=== PATIENT | female | born 1960 | race American Indian/Alaskan Native ===

== ENCOUNTER 2018-05-22 19:57 | Emergency (ER) | payer OTHER ==
[2018-05-22 20:05] VITALS: BP 154/72
[2018-05-22] MEDS ORDERED: FLEXERIL PO ONE (22:52)
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
== END 2018-05-23 00:39 | disposition home or self-care (01) ==
LOC: ED 19:57
DX: S46.911A Strain of unspecified muscle, fascia and tendon at shoulder and upper arm level, right arm, initial encounter (principal); S16.1XXA Strain of muscle, fascia and tendon at neck level, initial encounter; I10 Essential (primary) hypertension; F17.200 Nicotine dependence, unspecified, uncomplicated; Z88.6 Allergy status to analgesic agent; V87.7XXA Person injured in collision between other specified motor vehicles (traffic), initial encounter; Y93.89 Activity, other specified; Y92.488 Other paved roadways as the place of occurrence of the external cause; Y99.8 Other external cause status
CPT/HCPCS: 99283

== ENCOUNTER 2019-12-30 21:07 | Emergency (ER) | payer SELFPAY ==
[2019-12-30 22:34] VITALS: BP 147/72
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
== END 2019-12-31 00:26 | disposition home or self-care (01) ==
LOC: ED 21:07
DX: H10.9 Unspecified conjunctivitis (principal); F17.200 Nicotine dependence, unspecified, uncomplicated; I10 Essential (primary) hypertension; Z88.6 Allergy status to analgesic agent; Z79.899 Other long term (current) drug therapy; Z98.890 Other specified postprocedural states
CPT/HCPCS: 99282

== ENCOUNTER 2020-06-24 22:05 | Emergency (ER) | payer SELFPAY ==
[2020-06-24] MEDS ORDERED: ASPIRIN 81 MG TAB CHEW PO ONE (23:31)
--- NOTE | 2020-06-24 23:56 | XRay Report ---
CHEST 1 VIEW INDICATION: Chest pain. COMPARISON: None. FINDINGS: Support devices: None. Heart: Normal. Lungs/Pleura: No acute pulmonary or pleural findings. IMPRESSION: 1. No acute findings. Signer Name: Jose Luis Sargent MD Signed: 06/24/2020 11:51 PM Workstation Name: [id number]
--- NOTE | 2020-06-25 00:37 | Cat Scan Report ---
CT ABDOMEN AND PELVIS WITHOUT IV CONTRAST INDICATION: Left flank pain, hematuria. COMPARISON: None available. TECHNIQUE: All CT scans at this facility use dose modulation, automated exposure control, iterative reconstructi on or weight based dosing, when appropriate, to reduce radiation dose to as low as reasonably achieva ble. FINDINGS: Lung Bases: No significant abnormality. Skeletal System: No acute abnormality. ABDOMEN: Liver: Steatosis. Gallbladder: No significant abnormality. Bile Ducts: No significant abnormality. Pancreas: No significant abnormality. Spleen: No significant abnormality. Adrenals: No significant abnormality. Right Kidney: No significant abnormality. Left Kidney: No significant abnormality. Upper GI tract: No significant abnormality. Lymph Nodes: No significant adenopathy. Aorta: No significant abnormality. Additional Findings: No significant abnormality. PELVIS: Colon: No acute abnormality. Urinary Bladder and Distal Ureters: No significant abnormality. Appendix: No significant abnormality. Lymph Nodes: No significant adenopathy. Additional Findings: There is a 2 cm left ovarian cyst. IMPRESSION: 1. Within the limitations of non contrast technique, no acute process in the abdomen or pelvis. 2. Incidental findings, as above. Signer Name: Jose Luis Sargent MD Signed: 06/25/2020 12:33 AM Workstation Name: [id number]
[2020-06-25 00:40] LABS: Basophils % (Auto) 0.6 % (0.0-1.8); Eosinophils % (Auto) 0.1 % (0.0-4.3); Hematocrit 32.6 % (30.3-42.9); Hemoglobin 11.2 gm/dl (10.1-14.3); Lymphocytes # (Auto) 1.1 K/mm3 (1.2-5.4); Lymphocytes % (Auto) 26.4 % (13.4-35.0); Mean Corpuscular HGB Conc 34 % (30-34); Mean Corpuscular Volume 99 fl (79-97); Monocytes # (Auto) 0.6 K/mm3 (0.0-0.8); Monocytes % (Auto) 15.8 % (0.0-7.3); Platelet Count 209 K/mm3 (140-440); Red Cell Distribution Width 16.2 % (13.2-15.2)
[2020-06-25 00:52] LABS: Alanine Aminotransferase 44 units/L (7-56); Albumin 4.3 g/dL (3.9-5); Blood Urea Nitrogen 7 mg/dL (7-17); Calcium 8.5 mg/dL (8.4-10.2); Hemolysis Index 2
[2020-06-25 00:54] LABS: BUN/Creatinine Ratio 10
[2020-06-25 01:22] LABS: Bacteria,Urine 1+ /HPF (Negative); Bilirubin,Urine NEG (Negative); Blood,Urine SM (Negative); Color,Urine Yellow (Yellow); Mucus,Urine FEW /HPF
--- NOTE | 2020-06-25 04:07 | Emergency Department Report ---
ED Chest Pain HPI - General Chief Complaint: Chest Pain Stated Complaint: CHEST PAIN;RT SIDE PAIN Time Seen by Provider: 06/25/20 04:02 Source: patient Mode of arrival: Ambulatory Limitations: No Limitations - History of Present Illness Initial Comments: 60-year-old female, no known past medical history, presents to ED with chest pain and urinary symptoms. Patient reports onset of chest pain 2 days ago. States pain is dull, intermittent, located in the center of her chest, somewhat radiating to the left breast. Patient states pain only lasts for a couple seconds at a time. She denies any chest pain currently. Denies any aggravating or alleviating factors. She denies any fever, cough, shortness of breath, diaphoresis, leg pain or swelling. Patient reports tobacco use. Patient is also reporting urinary symptoms for approximately 1 week, including hematuria, urinary frequency and urgency. She reports some associated left lower back pain that radiates across the lower back. MD Complaint: chest pain -: days(s) (2) Onset: during rest Pain Location: substernal Pain Radiation: other (Left chest) Severity: mild Severity scale (0 -10): 7 Quality: dull Consistency: intermittent Improves With: nothing Worsens With: nothing re: denies: nausea, vomting, diaphoresis, dyspnea Other Symptoms: denies: cough, fever, leg swelling, palpitations - Related Data Previous Rx's Medication Instructions Recorded Last Taken Type Cyclobenzaprine HCl [Flexeril 5 MG 5 mg PO QHS PRN #10 tablet 05/23/18 Unknown Rx TAB] Ibuprofen 800 mg PO Q8HR PRN #20 tablet 05/23/18 Unknown Rx Ofloxacin 0.3% [Ocuflox 0.3% opth] 2 drops OP Q4HR 7 Days #1 bottle 12/30/19 Unknown Rx Nitrofurantoin Isabella/M-Cryst 100 mg PO Q12HR 7 Days #14 capsule 06/25/20 Unknown Rx [Macrobid CAP] hydroCHLOROthiazide [HCTZ] 25 mg PO QDAY #30 tablet 06/25/20 Unknown Rx Allergies Allergy/AdvReac Type Severity Reaction Status Date / Time aspirin Allergy Swelling Verified 03/20/13 19:45 Heart Score - HEART Score History: Slightly suspicious EKG: Normal Age: 45-65 Risk factors: 1-2 risk factors Troponin: < normal limit HEART Score: 2 - EKG Read Time Time EKG Completed: 00:19 EKG Read Time: 00:24 ED Review of Systems ROS: Stated complaint: CHEST PAIN;RT SIDE PAIN Other details as noted in HPI Comment: All other systems reviewed and negative Constitutional: denies: chills, fever Respiratory: denies: cough, shortness of breath Cardiovascular: chest pain Gastrointestinal: denies: abdominal pain, nausea, vomiting Genitourinary: urgency, frequency, hematuria Musculoskeletal: back pain ED Past Medical Hx - Past Medical History Previous Medical History?: Yes Hx Hypertension: Yes (noncompliant with medication times years) - Surgical History Past Surgical History?: Yes Additional Surgical History: lap - Social History Smoking Status: Current Every Day Smoker Substance Use Type: None - Medications Home Medications: Home Medications Medication Instructions Recorded Confirmed Last Taken Type Cyclobenzaprine HCl [Flexeril 5 MG 5 mg PO QHS PRN #10 tablet 05/23/18 Unknown Rx TAB] Ibuprofen 800 mg PO Q8HR PRN #20 tablet 05/23/18 Unknown Rx Ofloxacin 0.3% [Ocuflox 0.3% opth] 2 drops OP Q4HR 7 Days #1 bottle 12/30/19 Unknown Rx Nitrofurantoin Isabella/M-Cryst 100 mg PO Q12HR 7 Days #14 capsule 06/25/20 Unknown Rx [Macrobid CAP] hydroCHLOROthiazide [HCTZ] 25 mg PO QDAY #30 tablet 06/25/20 Unknown Rx ED Physical Exam - General Limitations: No Limitations General appearance: alert, in no apparent distress - Head Head exam: Present: atraumatic, normocephalic - Eye Eye exam: Present: normal appearance, EOMI - ENT ENT exam: Present: mucous membranes moist - Neck Neck exam: Present: normal inspection - Respiratory Respiratory exam: Present: normal lung sounds bilaterally. Absent: respiratory distress - Cardiovascular Cardiovascular Exam: Present: regular rate, normal rhythm - GI/Abdominal GI/Abdominal exam: Present: soft. Absent: distended, tenderness - Extremities Exam Extremities exam: Present: normal inspection - Back Exam Back exam: Absent: CVA tenderness (R), CVA tenderness (L), vertebral tenderness - Neurological Exam Neurological exam: Present: alert, oriented X3 - Psychiatric Psychiatric exam: Present: normal affect, normal mood - Skin Skin exam: Present: warm, dry, intact, normal color ED Course Vital Signs 06/25/20 00:11 Temperature 98.7 F Pulse Rate 85 Respiratory 20 Rate Blood Pressure 189/92 [Right] O2 Sat by Pulse 99 Oximetry ED Medical Decision Making - Lab Data Result diagrams: 06/24/20 23:35 06/24/20 23:35 - EKG Data -: EKG Interpreted by Me EKG shows normal: sinus rhythm, axis, QRS complexes, ST-T waves Rate: normal - EKG Data Interpretation: no acute changes, other (Prolonged QT) - Radiology Data Radiology results: report reviewed, image reviewed - Medical Decision Making 60-year-old female with chest pain and urinary symptoms. EKG is unremarkable. Troponin is negative x2. Chest x-ray is normal. Patient is chest pain-free. Blood pressure is elevated. She reports no previous diagnosis of hypertension. Patient is not currently on any BP meds. Previous visit here at our facility shows a diagnosis of hypertensive urgency. Patient will not require admission at this time. Will discharge with prescription for antihypertensives. Referral faxed to [facility] for urgent cardiology follow-up. Patient also appears to have a UTI. No CVA tenderness on exam, CT is negative for any abnormal findings. Will prescribe antibiotics. Outpatient follow-up advised. Return precautions given. - Differential Diagnosis ACS, pneumonia, UTI, kidney stone, pyelonephritis Critical care attestation.: If time is entered above; I have spent that time in minutes in the direct care of this critically ill patient, excluding procedure time. ED Disposition Clinical Impression: Chest pain, UTI (urinary tract infection), Uncontrolled hypertension Disposition: - TO HOME OR SELFCARE Is pt being admited?: No Condition: Stable Instructions: Nonspecific Chest Pain, Adult, Urinary Tract Infection, Adult, [id number], Hypertension, Adult, [id number], Hypertension (ED) Prescriptions: hydroCHLOROthiazide [HCTZ] 25 mg PO QDAY #30 tablet Nitrofurantoin Isabella/M-Cryst [Macrobid CAP] 100 mg PO Q12HR 7 Days #14 capsule Referrals: PRIMARY CARE, [Primary Care Provider] - 3-5 Days [facility] [Provider Group] - 3-5 Days Time of Disposition: 04:42
[2020-06-25 05:22] VITALS: BP 193/98
--- NOTE | 2020-06-25 17:36 | Electrocardiograph Report ---
[facility] Test Date: 2020-06-25 Test Time: 00:19:50 Pat Name: CORINNE HURLEY Department: Room: Gender: F Seam Presser: PIERO : 1960 Requested By: NANCI RIOJAS Order Number: [id number] Reading MD: Arely Richardson Measurements Intervals [place] Rate: 82 P: 38 MD: 153 QRS: 57 QRSD: 82 T: 49 QT: 430 QTc: 503 Interpretive Statements Sinus rhythm Prolonged QT interval No previous ECG available for comparison Electronically Signed On 06-25-2020 17:36:00 EDT by Arely Richardson
== END 2020-06-25 05:25 | disposition home or self-care (01) ==
LOC: ED 22:05
DX: N39.0 Urinary tract infection, site not specified (principal); R07.89 Other chest pain; I10 Essential (primary) hypertension; F17.200 Nicotine dependence, unspecified, uncomplicated; Z98.890 Other specified postprocedural states; Z79.1 Long term (current) use of non-steroidal anti-inflammatories (NSAID); Z79.899 Other long term (current) drug therapy; Z88.6 Allergy status to analgesic agent
CPT/HCPCS: 36415; 71045; 74176; 80053; 81001; 83690; 83880; 84484; 85025; 87086; 93005

== ENCOUNTER 2021-10-09 12:42 | Inpatient (IN) | payer BC, OTHER ==
--- NOTE | 2021-10-09 15:48 | XRay Report ---
RIGHT ANKLE 3 VIEW(S) INDICATION / CLINICAL INFORMATION: ankle pain COMPARISON: None available. FINDINGS: BONES / JOINT(S): No acute fracture or subluxation. Old healed fracture distal fibula. Old avulsion f racture inferior tip medial malleolus from deltoid ligament avulsion. Mild degenerative arthrosis tib iotalar joint with mild widening medial ankle clear space. SOFT TISSUES: Marked lateral and mild medial ankle soft tissue swelling. ADDITIONAL FINDINGS: Moderate-sized plantar calcaneal enthesophyte. IMPRESSION: 1. Moderate ankle soft tissue swelling. 2. Old avulsion fracture tip of medial malleolus and old healed distal fibular fracture 3. Mild posttraumatic arthrosis tibiotalar joint with mild widening medial ankle clear space Signer Name: Daen Mcghee MD Signed: 10/09/2021 3:43 PM Workstation Name: [id number]
--- NOTE | 2021-10-09 20:50 | XRay Report ---
CHEST 2 VIEWS INDICATION: Chest Pain. COMPARISON: 06/24/2020 FINDINGS: SUPPORT DEVICES: None. HEART: Within normal limits. LUNGS/PLEURA: No acute air space or interstitial disease. No pneumothorax. ADDITIONAL FINDINGS: None. IMPRESSION: 1. No acute findings. Signer Name: Gabe Wills MD Signed: 10/09/2021 8:46 PM Workstation Name: [id number]
[2021-10-09 21:06] LABS: Hemoglobin 6.4 gm/dl (10.1-14.3); Mean Corpuscular HGB Conc 33 % (30-34); Mean Corpuscular Volume 95 fl (79-97); Platelet Count 274 K/mm3 (140-440); Red Blood Count 2.05 M/mm3 (3.65-5.03); Red Cell Distribution Width 17.8 % (13.2-15.2)
[2021-10-09 21:13] LABS: Hematocrit 19.3 % (30.3-42.9)
[2021-10-09 21:15] LABS: INR 1.03 (0.87-1.13)
[2021-10-09 21:16] LABS: Partial Thromboplastin Time 29.4 Sec. (24.2-36.6)
[2021-10-09 21:35] LABS: Alanine Aminotransferase 23 units/L (7-56); Albumin 3.6 g/dL (3.9-5); BUN/Creatinine Ratio 13; Blood Urea Nitrogen 17 mg/dL (7-17); Calcium 9.2 mg/dL (8.4-10.2); Hemolysis Index 0
[2021-10-10] MEDS ORDERED: FOLIC ACID 1 MG TAB PO STA (16:05)
[2021-10-10] MEDS ORDERED: THIAMINE 100 MG TAB PO ONE (16:05)
--- NOTE | 2021-10-10 17:09 | Emergency Department Report ---
- General Chief complaint: Extremity Injury, Lower Stated complaint: RT ANKLE PAIN Time Seen by Provider: 10/10/21 14:59 Source: patient, EMS Mode of arrival: Stretcher Limitations: No Limitations - History of Present Illness Initial comments: Patient is a 61-year-old female with a history of chronic alcohol abuse presents for evaluation of several days of swelling to her legs as well as complaints of right upper back pain. Patient reports she has been having pain and swelling to her right ankle and this occurred 2 days ago after she awoke from sleep. She denies any falls or trauma. She also reports swelling to her left ankle as well. She states that she drinks alcohol approximately 6 out of 7 days a week and drinks vodka. Patient states she has not seen a doctor "in years" and so she denies any other symptoms. - Related Data Previous Rx's Medication Instructions Recorded Last Taken Type Cyclobenzaprine HCl [Flexeril 5 MG 5 mg PO QHS PRN #10 tablet 05/23/18 Unknown Rx TAB] Ibuprofen 800 mg PO Q8HR PRN #20 tablet 05/23/18 Unknown Rx Ofloxacin 0.3% [Ocuflox 0.3% opth] 2 drops OP Q4HR 7 Days #1 bottle 12/30/19 Unknown Rx Nitrofurantoin Bremer/M-Cryst 100 mg PO Q12HR 7 Days #14 capsule 06/25/20 Unknown Rx [Macrobid CAP] hydroCHLOROthiazide [HCTZ] 25 mg PO QDAY #30 tablet 06/25/20 Unknown Rx Allergies Allergy/AdvReac Type Severity Reaction Status Date / Time aspirin Allergy Swelling Verified 10/09/21 12:49 ED Review of Systems ROS: Stated complaint: RT ANKLE PAIN Other details as noted in HPI Comment: All other systems reviewed and negative Constitutional: no symptoms reported Eyes: as per HPI ED Past Medical Hx - Past Medical History Hx Hypertension: Yes (noncompliant with medication times years) - Surgical History Additional Surgical History: lap - Social History Smoking Status: Current Every Day Smoker Substance Use Type: None - Medications Home Medications: Home Medications Medication Instructions Recorded Confirmed Last Taken Type Cyclobenzaprine HCl [Flexeril 5 MG 5 mg PO QHS PRN #10 tablet 05/23/18 Unknown Rx TAB] Ibuprofen 800 mg PO Q8HR PRN #20 tablet 05/23/18 Unknown Rx Ofloxacin 0.3% [Ocuflox 0.3% opth] 2 drops OP Q4HR 7 Days #1 bottle 12/30/19 Unknown Rx Nitrofurantoin Bremer/M-Cryst 100 mg PO Q12HR 7 Days #14 capsule 06/25/20 Unknown Rx [Macrobid CAP] hydroCHLOROthiazide [HCTZ] 25 mg PO QDAY #30 tablet 06/25/20 Unknown Rx ED Physical Exam - General Limitations: No Limitations ED Course Vital Signs 10/09/21 10/10/21 10/10/21 12:46 15:32 15:46 Temperature 99.6 F Pulse Rate 98 H 97 H 80 Respiratory 14 11 L Rate Blood Pressure 168/60 Blood Pressure 168/74 [Left] O2 Sat by Pulse 98 Oximetry 10/10/21 10/10/21 10/10/21 16:00 16:16 16:30 Temperature Pulse Rate 80 90 82 Respiratory 14 27 H 20 Rate Blood Pressure 168/60 120/102 120/102 Blood Pressure [Left] O2 Sat by Pulse Oximetry 10/10/21 10/10/21 10/10/21 16:46 17:00 17:16 Temperature Pulse Rate 78 79 78 Respiratory 24 18 19 Rate Blood Pressure 120/102 186/85 197/85 Blood Pressure [Left] O2 Sat by Pulse Oximetry 10/10/21 10/10/21 10/10/21 17:30 17:46 18:00 Temperature Pulse Rate 79 79 80 Respiratory 21 20 12 Rate Blood Pressure 197/85 172/80 189/164 Blood Pressure [Left] O2 Sat by Pulse Oximetry 10/10/21 10/10/21 10/10/21 18:15 18:31 18:45 Temperature Pulse Rate 83 106 H 84 Respiratory 16 29 H 18 Rate Blood Pressure 157/126 157/126 157/126 Blood Pressure [Left] O2 Sat by Pulse Oximetry 10/10/21 10/10/21 10/10/21 19:01 19:15 19:31 Temperature Pulse Rate 97 H 84 88 Respiratory 16 17 25 H Rate Blood Pressure 157/126 157/126 141/62 Blood Pressure [Left] O2 Sat by Pulse 99 100 100 Oximetry 10/10/21 10/10/21 10/10/21 19:45 20:01 20:15 Temperature Pulse Rate 100 H 90 84 Respiratory 25 H 25 H 14 Rate Blood Pressure 141/62 141/62 141/62 Blood Pressure [Left] O2 Sat by Pulse 97 100 99 Oximetry 10/10/21 10/10/21 10/10/21 20:30 20:45 21:01 Temperature Pulse Rate 82 Respiratory 14 21 Rate Blood Pressure 172/80 141/62 141/62 Blood Pressure [Left] O2 Sat by Pulse 97 79 L 100 Oximetry 10/10/21 21:15 Temperature Pulse Rate Respiratory 21 Rate Blood Pressure 141/62 Blood Pressure [Left] O2 Sat by Pulse 100 Oximetry ED Medical Decision Making - Lab Data Result diagrams: 10/10/21 16:28 10/09/21 20:37 - EKG Data When compared to previous EKG there are: no significant change Interpretation: no acute changes - Radiology Data Radiology results: report reviewed - Medical Decision Making Case reviewed with admitting hospitalist, Dr. Rothman. Pt per his recommendation, to be given lovenox in ER for pulmonary embolism. Pt will be accepted to his service for further management. Critical care attestation.: If time is entered above; I have spent that time in minutes in the direct care of this critically ill patient, excluding procedure time. ED Disposition Clinical Impression: Pulmonary embolism, Symptomatic anemia, Alcohol dependence Disposition: ADMITTED INPATIENT Is pt being admited?: Yes Does the pt Need Aspirin: No Condition: Stable Referrals: PRIMARY CARE, [Primary Care Provider] - 3-5 Days
[2021-10-10 17:11] LABS: Basophils % (Auto) 0.2 % (0.0-1.8); Eosinophils # (Auto) 0.1 K/mm3 (0.0-0.4); Eosinophils % (Auto) 0.6 % (0.0-4.3); Hemoglobin 6.4 gm/dl (10.1-14.3); Lymphocytes # (Auto) 0.6 K/mm3 (1.2-5.4); Lymphocytes % (Auto) 7.8 % (13.4-35.0); Mean Corpuscular HGB Conc 33 % (30-34); Mean Corpuscular Volume 95 fl (79-97); Monocytes # (Auto) 0.8 K/mm3 (0.0-0.8); Monocytes % (Auto) 9.1 % (0.0-7.3); Platelet Count 264 K/mm3 (140-440); Red Blood Count 2.05 M/mm3 (3.65-5.03); Red Cell Distribution Width 17.6 % (13.2-15.2)
[2021-10-10 17:16] LABS: Hematocrit 19.5 % (30.3-42.9)
[2021-10-10 17:21] LABS: INR 1.05 (0.87-1.13)
[2021-10-10 17:22] LABS: Partial Thromboplastin Time 31.3 Sec. (24.2-36.6)
[2021-10-10] MEDS ORDERED: LORazepam 2 MG/ML VIAL IV ONE (17:27)
[2021-10-10] MEDS ORDERED: MAGNESIUM SULFATE 1 GM in SODIUM CHLORIDE 0.9% 50 ML IV ONE (19:00)
[2021-10-10] MEDS ORDERED: SODIUM CHLORIDE 0.9% 500 ML 500 ML IV ONE ×2 (20:58→21:08)
--- NOTE | 2021-10-10 21:19 | Cat Scan Report ---
CTA CHEST WITH CONTRAST INDICATION / CLINICAL INFORMATION: R sided thoracic back pain, sob; eval dissection. TECHNIQUE: Axial CT images were obtained through the chest after injection of IV contrast. 3 plane [place] P and/or 3D reconstructions were produced. All CT scans at this location are performed using CT dose reduction for ALARA by means of automated exposure control. COMPARISON: None available. FINDINGS: PULMONARY ARTERIES: There are segmental filling defects involving the right lower lobe segmental rachele erich. The main pulmonary artery is dilated measuring up to 3.3 cm. THORACIC AORTA: Mild atherosclerotic calcification without acute abnormality. HEART: No significant abnormality. CORONARY ARTERY CALCIFICATION: Mild. MEDIASTINUM / KERVIN: No significant abnormality. PLEURA: No pleural effusion. No pneumothorax. LUNGS: No acute air space or interstitial disease. ADDITIONAL FINDINGS: None. UPPER ABDOMEN: No acute findings. SKELETAL STRUCTURES: No significant osseous abnormality. IMPRESSION: 1. Subsegmental pulmonary emboli within the right lower lobe. 2. No additional acute findings. CRITICAL RESULT Time of Discovery (COMPUTER PROGRAMMING MANAGER/CDT): 8:06 PM Time of Communication (COMPUTER PROGRAMMING MANAGER/CDT): 8:14PM Licensed Practitioner Receiving Report: Dr. Merchant Read-Back Performed: Yes. Signer Name: Ephraim Petit DO Signed: 10/10/2021 9:15 PM Workstation Name: [id number]
[2021-10-10] MEDS ORDERED: ENOXAPARIN 100 MG/1 ML INJ SUB-Q STA (21:36)
[2021-10-10] MEDS ORDERED: ONDANSETRON 4 MG/2 ML INJ IV PRN (21:39)
[2021-10-10] MEDS ORDERED: MORPHINE 4 MG/1 ML INJ IV PRN (21:39)
[2021-10-10] MEDS ORDERED: MORPHINE 2 MG/1 ML INJ IV PRN (21:39)
[2021-10-10] MEDS ORDERED: ACETAMINOPHEN 325 MG TAB PO PRN (21:39)
[2021-10-10] MEDS ORDERED: THIAMINE 100 MG, FOLIC ACID 1 MG, MULTIPLE VITAMIN INJ, ADULT 10 ML in SODIUM CHLORIDE ... IV SCH (21:41)
--- NOTE | 2021-10-10 21:50 | History and Physical Report ---
History of Present Illness Date of examination: 10/10/21 Date of admission: 10/10/21 Chief complaint: Right ankle pain History of present illness: 61-year-old female with a history of alcohol abuse was brought to the emergency room because of several days of swelling to her legs as well as complaints of right upper back pain. Patient reports she has been having pain and swelling to her right ankle and this occurred 2 days ago after she awoke from sleep. She d enies any falls or trauma. She also reports swelling to her left ankle as well. She states that she drinks alcohol approximately 6 out of 7 days a week and drinks vodka. Patient states she has not seen a doctor "in years" and so she denies any other symptoms. In the emergency room patient is found to have hemoglobin of 6.4 and hematocrit 19.5. Chest CTA shows subsegmental pulmonary embolism within right lower lobe. X-ray of the ankle shows moderate ankle soft tissue swelling. Old avulsion fracture tip of the medial malleolus and old healed distal fibular fracture. Mild posttraumatic arthrosis tibiotalar joint with mild widening medial ankle clear space. Past History Past Medical History: hypertension Past Surgical History: Other (Left surgery) Social history: smoking, alcohol abuse Medications and Allergies Allergies Allergy/AdvReac Type Severity Reaction Status Date / Time aspirin Allergy Swelling Verified 10/09/21 12:49 Home Medications Medication Instructions Recorded Confirmed Last Taken Type Cyclobenzaprine HCl [Flexeril 5 MG 5 mg PO QHS PRN #10 tablet 05/23/18 Unknown Rx TAB] Ibuprofen 800 mg PO Q8HR PRN #20 tablet 05/23/18 Unknown Rx Ofloxacin 0.3% [Ocuflox 0.3% opth] 2 drops OP Q4HR 7 Days #1 bottle 12/30/19 Unknown Rx Nitrofurantoin [place]/M-Cryst 100 mg PO Q12HR 7 Days #14 capsule 06/25/20 Unknown Rx [Macrobid CAP] hydroCHLOROthiazide [HCTZ] 25 mg PO QDAY #30 tablet 06/25/20 Unknown Rx Active Meds: Active Medications Acetaminophen (Acetaminophen 325 Mg Tab) 650 mg PO Q4H PRN PRN Reason: Pain MILD(1-3)/Fever >100.5/SCHAFER Enoxaparin Sodium (Enoxaparin 100 Mg/1 Ml Inj) 70 mg 1 mg/kg (70 mg) SUB-Q Q12HR KATARINA; Protocol Famotidine (Famotidine 20 Mg Tab) 20 mg PO BID KATARINA Hydrochlorothiazide (Hydrochlorothiazide 25 Mg Tab) 25 mg PO QDAY KATARINA Thiamine HCl 100 mg/ Folic Acid 1 mg/ Multivitamins/Minerals 10 ml/ Sodium Chloride 1,011.2 mls @ 250 mls/hr IV DAILY ONE Stop: 10/11/21 01:43 Morphine Sulfate (Morphine 2 Mg/1 Ml Inj) 2 mg IV Q4H PRN PRN Reason: Pain, Moderate (4-6) Morphine Sulfate (Morphine 4 Mg/1 Ml Inj) 4 mg IV Q4H PRN PRN Reason: Pain , Severe (7-10) Nitrofurantoin Macrocrystals (Nitrofurantoin Monohyd/M-Cryst 100 Mg Cap) 100 mg PO Q12HR COUNT INCLUDES THE [facility] Ondansetron HCl (Ondansetron 4 Mg/2 Ml Inj) 4 mg IV Q8H PRN PRN Reason: Nausea And Vomiting Sodium Chloride (Sodium Chloride 0.9% 10 Ml Flush Syringe) 10 ml IV BID COUNT INCLUDES THE [facility] Sodium Chloride (Sodium Chloride 0.9% 10 Ml Flush Syringe) 10 ml IV PRN PRN PRN Reason: LINE FLUSH Review of Systems All systems: negative Constitutional: other (pain and swelling to her right ankle) Exam - Constitutional Vitals: Temp Pulse Resp BP Pulse Ox 99.6 F 82 21 141/62 100 10/09/21 12:46 10/10/21 20:30 10/10/21 21:15 10/10/21 21:15 10/10/21 21:15 General appearance: Present: no acute distress, well-nourished - EENT Eyes: Present: PERRL ENT: hearing intact, clear oral mucosa - Neck Neck: Present: supple, normal ROM - Respiratory Respiratory effort: normal Respiratory: bilateral: CTA - Cardiovascular Heart Sounds: Present: S1 & S2. Absent: rub, click - Extremities Extremities: pulses symmetrical, No edema Peripheral Pulses: within normal limits - Abdominal General gastrointestinal: Present: soft, non-tender, non-distended, normal bowel sounds Female genitourinary: Present: normal - Integumentary Integumentary: Present: clear, warm, dry - Musculoskeletal Musculoskeletal: gait normal, strength equal bilaterally - Psychiatric Psychiatric: appropriate mood/affect, intact judgment & insight - Neurologic Neurologic: CNII-XII intact, moves all extremities HEART Score - HEART Score Troponin: Troponin T < 0.010 ng/mL (0.00-0.029) 10/10/21 02:23 Results - Labs CBC & Chem 7: 10/10/21 16:28 10/09/21 20:37 Labs: Laboratory Last Values WBC 8.2 K/mm3 (4.5-11.0) 10/10/21 16: RBC 2.05 M/mm3 (3.65-5.03) L 10/10/21 16:28 Hgb 6.4 gm/dl (10.1-14.3) L 10/10/21 16: Hct 19.5 % (30.3-42.9) L* 10/10/21 16: MCV 95 fl (79-97) 10/10/21 16: MCH 31 pg (28-32) 10/10/21 16: MCHC 33 % (30-34) 10/10/21 16:28 RDW 17.6 % (13.2-15.2) H 10/10/21 16:28 Plt Count 264 K/mm3 (140-440) 10/10/21 16: Lymph % (Auto) 7.8 % (13.4-35.0) L 10/10/21 16: Monroe % (Auto) 9.1 % (0.0-7.3) H 10/10/21 16:28 Eos % (Auto) 0.6 % (0.0-4.3) 10/10/21 16: Baso % (Auto) 0.2 % (0.0-1.8) 10/10/21 16: Lymph # (Auto) 0.6 K/mm3 (1.2-5.4) L 10/10/21 16: Monroe # (Auto) 0.8 K/mm3 (0.0-0.8) 10/10/21 16: Eos # (Auto) 0.1 K/mm3 (0.0-0.4) 10/10/21 16:28 Baso # (Auto) 0.0 K/mm3 (0.0-0.1) 10/10/21 16: Seg Neutrophils % 82.3 % (40.0-70.0) H 10/10/21 16:28 Seg Neutrophils # 6.8 K/mm3 (1.8-7.7) 10/10/21 16:28 PT 14.9 Sec. (12.2-14.9) 10/10/21 16:28 INR 1.05 (0.87-1.13) 10/10/21 16:28 APTT 31.3 Sec. (24.2-36.6) 10/10/21 16:28 Sodium 145 mmol/L (137-145) 10/09/21 20:37 Potassium 4.2 mmol/L (3.6-5.0) 10/09/21 20:37 Chloride 107.5 mmol/L (98-107) H 10/09/21 20:37 Carbon Dioxide 20 mmol/L (22-30) L 10/09/21 20:37 Anion Gap 22 mmol/L 10/09/21 20:37 BUN 17 mg/dL (7-17) 10/09/21 20:37 Creatinine 1.3 mg/dL (0.6-1.2) H 10/09/21 20:37 Estimated GFR 51 ml/min 10/09/21 20:37 BUN/Creatinine Ratio 13 % 10/09/21 20:37 Glucose 137 mg/dL (65-100) H 10/09/21 20:37 Calcium 9.2 mg/dL (8.4-10.2) 10/09/21 20:37 Magnesium 1.10 mg/dL (1.7-2.3) L 10/10/21 16:28 Total Bilirubin 0.50 mg/dL (0.1-1.2) 10/09/21 20:37 AST 35 units/L (5-40) 10/09/21 20:37 ALT 23 units/L (7-56) 10/09/21 20:37 Alkaline Phosphatase 129 units/L (35-129) 10/09/21 20:37 Troponin T < 0.010 ng/mL (0.00-0.029) 10/10/21 02:23 NT-Pro-B Natriuret Pep 2336 pg/mL (0-900) H 10/10/21 16:28 Total Protein 7.0 g/dL (6.3-8.2) 10/09/21 20:37 Albumin 3.6 g/dL (3.9-5) L 10/09/21 20:37 Albumin/Globulin Ratio 1.1 % 10/09/21 20:37 Lipase 28 units/L (13-60) 10/09/21 20:37 Plasma/Serum Alcohol < 0.01 % (0-0.07) 10/10/21 16:28 Blood Type O POSITIVE 10/10/21 Unknown Antibody Screen Negative 10/10/21 Unknown Crossmatch See Detail 10/10/21 Unknown - Imaging and Cardiology CT scan - chest: report reviewed Assessment and Plan VTE prophylaxis?: Chemical Plan of care discussed with patient/family: Yes - Patient Problems (1) Pulmonary embolism Current Visit: Yes Status: Acute Plan to address problem: Admit the patient to the medical telemetry. Oxygen by nasal cannula 3 to per minute. DuoNeb by nebulizer every 4 hours. Lovenox 1 mg/kg subcu every 12 hours. We will monitor the patient closely (2) Symptomatic anemia Current Visit: Yes Status: Acute Plan to address problem: Will transfuse 2 unit of packed red blood cell. We will send the stool for guaiac. Pepcid 20 mg p.o. twice daily. Consult GI if needed (3) Tobacco abuse Current Visit: Yes Status: Acute Plan to address problem: We counseled the patient regarding quitting smoking. We put the patient on nicotine patch (4) Alcohol dependence Current Visit: Yes Status: Acute Plan to address problem: We put the patient on thiamine 100 mg IV daily. Folic acid 1 mg p.o. daily and banana bag daily. We counseled the patient regarding quit drinking (5) Hypertension Current Visit: Yes Status: Acute Plan to address problem: Hydrochlorothiazide 25 mg p.o. daily. We continue the home medication (6) DVT prophylaxis Current Visit: Yes Status: Acute Plan to address problem: Lovenox 1 mg/kg subcu every 12 hours for DVT prophylaxis. Pepcid 20 mg p.o. twice daily for GI prophylaxis. Patient is a full code
[2021-10-10] MEDS ORDERED: NITROFURANTOIN MONOHYD/M-CRYST 100 MG CAP PO SCH (22:00)
[2021-10-11] MEDS: ENOXAPARIN 80 MG/0.8 ML INJ SUB-Q SCH ×2 (00:22→10:19)
[2021-10-11] MEDS: FAMOTIDINE 20 MG TAB PO SCH ×2 (00:24→10:16)
[2021-10-11 01:24] LABS: Amphetamine Screen,Urine PRESUMPTIVE NEGATIVE; Benzodiazepines Screen,Urine PRESUMPTIVE NEGATIVE; Cannabinoid Screen,Urine PRESUMPTIVE NEGATIVE; Cocaine Screen,Urine PRESUMPTIVE NEGATIVE; Methadone Screen,Urine PRESUMPTIVE NEGATIVE; Opiate Screen,Urine PRESUMPTIVE NEGATIVE
[2021-10-11 02:26] LABS: Mucus,Urine FEW /HPF
[2021-10-11 02:51] LABS: Bilirubin,Urine Negative (Negative); Blood,Urine Negative (Negative); Color,Urine Yellow (Yellow)
[2021-10-11 02:52] LABS: Urobilinogen,Urine < 2.0 mg/dL (<2.0)
[2021-10-11 06:45] LABS: Basophils % (Auto) 0.2 % (0.0-1.8); Eosinophils # (Auto) 0.1 K/mm3 (0.0-0.4); Eosinophils % (Auto) 0.8 % (0.0-4.3); Hematocrit 25.5 % (30.3-42.9); Hemoglobin 8.8 gm/dl (10.1-14.3); Lymphocytes % (Auto) 10.3 % (13.4-35.0); Mean Corpuscular HGB Conc 35 % (30-34); Mean Corpuscular Volume 89 fl (79-97); Monocytes # (Auto) 1.1 K/mm3 (0.0-0.8); Monocytes % (Auto) 11.8 % (0.0-7.3); Platelet Count 218 K/mm3 (140-440); Red Blood Count 2.88 M/mm3 (3.65-5.03); Red Cell Distribution Width 17.5 % (13.2-15.2)
[2021-10-11 06:57] LABS: BUN/Creatinine Ratio 15; Blood Urea Nitrogen 17 mg/dL (7-17); Calcium 8.1 mg/dL (8.4-10.2); Hemolysis Index 0
[2021-10-11] MEDS ORDERED: LORazepam 2 MG/ML VIAL IV PRN (07:30)
[2021-10-11] MEDS ORDERED: LORazepam 2 MG TAB PO PRN (07:30)
[2021-10-11] MEDS ORDERED: chlordiazePOXIDE 25 MG CAP PO PRN (08:00)
[2021-10-11] MEDS ORDERED: amLODIPine 5 MG TAB PO SCH (10:00)
[2021-10-11] MEDS ORDERED: hydroCHLOROthiazide 25 MG TAB PO SCH (10:00)
[2021-10-11] MEDS ORDERED: LOSARTAN 50 MG TAB PO SCH (10:00)
--- NOTE | 2021-10-11 11:19 | Electrocardiograph Report ---
[facility] Test Date: 2021-10-11 Test Time: 07:17:45 Pat Name: CHICAGO HURLEY Department: Room: A466 1 Gender: F Director [employer]: NING : 1960 Requested By: DEYA HERNANDEZ Order Number: [id number] Reading MD: Marin Vazquez Measurements Intervals [place] Rate: 77 P: 59 LA: 144 QRS: 61 QRSD: 83 T: 49 QT: 426 QTc: 482 Interpretive Statements Sinus rhythm No previous ECG available for comparison Electronically Signed On 10-11-2021 11:19:02 EDT by Marin Vazquez
[2021-10-11] MEDS ORDERED: FLUCONAZOLE 200 MG TAB PO SCH (12:30)
--- NOTE | 2021-10-11 13:35 | Discharge Summary ---
Providers - Providers Date of Admission: 10/10/21 21:39 Date of discharge: 10/11/21 Attending physician: KENYA KATE MD Primary care physician: FEEDER CATCHER Hospitalization Reason for admission: Acute pulmonary embolism Condition: Stable Pertinent studies: Reviewed. Procedures: None. Hospital course: Patient is a 61-year-old woman past medical history of alcohol dependence, hypertension, tobacco dependence, and obesity who presented to the ED with complaints of right upper back pain that it started approximately 2 days ago that have woke her from sleep. In the ED, patient was found to be hemodynamically stable. She had labs are remarkable for a hemoglobin of 6.4 requiring transfusion of 1 units packed RBCs. Patient underwent CT angio chest that was remarkable for subsegmental pulmonary emboli right lower lobe, and she has started on Lovenox 1 mg/kg twice daily. Patient also had a lab that was remarkable for proBNP 2336 prompting a TTE to be performed that was found to ultimately be unremarkable. Patient was counseled at length about the importance of following up with a primary care provider to address her other complaints such as left ankle swelling, lower back pain, etc. Patient was found to have a diffuse fungal infection that will be treated with terbinafine 250mg daily x 10 days. The patient expresses understanding and is medically clear for discharge. Disposition: 01 HOME / SELF CARE / HOMELESS Final Discharge Diagnosis (Prints w/discharge instructions): Pulmonary embolism, hypertension, tobacco dependence, alcohol dependence, obesity. Time spent for discharge: 45 min Core Measure Documentation - Palliative Care Palliative Care/ Comfort Measures: Not Applicable - Core Measures Any of the following diagnoses?: none - VTE Discharge Requirements Deep Vein Thrombosis/Pulmonary Embolism Present on Admission: Yes Anticoagulant overlap therapy prescribed at discharge: Yes Exam - Constitutional Vitals: Temp Pulse Resp BP Pulse Ox 98.3 F 76 17 164/77 100 10/11/21 07:30 10/11/21 07:30 10/11/21 07:30 10/11/21 07:30 10/11/21 12:00 General appearance: Present: no acute distress, well-nourished, obese - EENT Eyes: Present: PERRL, EOM intact ENT: hearing intact, clear oral mucosa, dentition normal - Neck Neck: Present: supple, normal ROM - Respiratory Respiratory effort: normal Respiratory: bilateral: CTA - Cardiovascular Rhythm: regular Heart Sounds: Present: S1 & S2 - Extremities Extremities: no ischemia, pulses intact, pulses symmetrical, No edema, normal temperature, normal color Peripheral Pulses: within normal limits - Abdominal General gastrointestinal: Present: soft, non-tender, non-distended, normal bowel sounds Female genitourinary: Present: deferred - Rectal Rectal Exam: deferred - Integumentary Integumentary: Present: warm, dry (Diffuse fungal infection on lower extremities, inner bilateral thighs, and back) - Musculoskeletal Musculoskeletal: generalized weakness - Psychiatric Psychiatric: appropriate mood/affect, cooperative - Neurologic Neurologic: CNII-XII intact, moves all extremities - Allied Health Allied health notes reviewed: nursing Plan Activity: advance as tolerated Diet: low salt Additional Instructions: Patient is a 61-year-old woman past medical history of alcohol dependence, hypertension, tobacco dependence, and obesity who presented to the ED with complaints of right upper back pain that it started approximately 2 days ago that have woke her from sleep. In the ED, patient was found to be hemodynamically stable. She had labs are remarkable for a hemoglobin of 6.4 requiring transfusion of 1 units packed RBCs. Patient underwent CT angio chest that was remarkable for subsegmental pulmonary emboli right lower lobe, and she has started on Lovenox 1 mg/kg twice daily. Patient also had a lab that was remarkable for proBNP 2336 prompting a TTE to be performed that was found to ultimately be unremarkable. Patient was counseled at length about the importance of following up with a primary care provider to address her other complaints such as left ankle swelling, lower back pain, etc. Patient was found to have a diffuse fungal infection that will be treated with terbinafine 250mg daily x 10 days. The patient expresses understanding and is medically clear for discharge. Care Plan Goals: Patient is medically clear for discharge. Assessment: Patient is a 61-year-old woman past medical history of alcohol dependence, hypertension, tobacco dependence, and obesity who presented to the ED with complaints of right upper back pain that it started approximately 2 days ago that have woke her from sleep. In the ED, patient was found to be hemodynamically stable. She had labs are remarkable for a hemoglobin of 6.4 requiring transfusion of 1 units packed RBCs. Patient underwent CT angio chest that was remarkable for subsegmental pulmonary emboli right lower lobe, and she has started on Lovenox 1 mg/kg twice daily. Patient also had a lab that was remarkable for proBNP 2336 prompting a TTE to be performed that was found to ultimately be unremarkable. Patient was counseled at length about the importance of following up with a primary care provider to address her other com plaints such as left ankle swelling, lower back pain, etc. Patient was found to have a diffuse fungal infection that will be treated with terbinafine 250mg daily x 10 days. The patient expresses understanding and is medically clear for discharge. Follow up with: PRIMARY CARE, [Primary Care Provider] - 3-5 Days YEISON TUBBS MD [Staff Physician] - 7 Days YULIANA WEINBERG MD [Staff Physician] - 14 Days (Due to colonoscopy (especially in the setting of anemia)) Prescriptions: amLODIPine 5 mg PO QDAY #30 tablet Losartan [Cozaar] 50 mg PO QDAY #30 tablet hydroCHLOROthiazide [HCTZ] 25 mg PO QDAY #30 tablet Ferrous Sulfate [Iron 325 MG] 325 mg PO DAILY #30 tab Terbinafine (Nf) [LamiSIL] 250 mg PO QDAY #10 tablet Multivitamin Tab [Multiple Vitamin TAB (Theragran)] 1 each PO DAILY #30 tablet Thiamine [Vitamin B-1] 100 mg PO QDAY #30 tablet
[2021-10-11 14:54] VITALS: BP 151/76
[2021-10-12] MEDS ORDERED: MULTIVITAMINS ,THERAPEUTIC TAB PO SCH (10:00)
[2021-10-12] MEDS ORDERED: THIAMINE 100 MG TAB PO SCH (10:00)
[2021-10-12] MEDS ORDERED: FOLIC ACID 1 MG TAB PO SCH (10:00)
== END 2021-10-11 15:45 | disposition home or self-care (01) | DRG 176 ==
LOC: ED 12:42 → 4A 10-10 21:39
PROVIDERS: ADMIT Hospitalist; ATTEND Student in an Organized Health Care Education/Training Program
PROC: 30233N1 Transfusion of Nonautologous Red Blood Cells into Peripheral Vein, Percutaneous Approach (ICD-10-PCS; principal; 2021-10-10)
DX: I26.99 Other pulmonary embolism without acute cor pulmonale (principal); D64.9 Anemia, unspecified; F17.200 Nicotine dependence, unspecified, uncomplicated; I10 Essential (primary) hypertension; F10.20 Alcohol dependence, uncomplicated; Y90.9 Presence of alcohol in blood, level not specified; E66.9 Obesity, unspecified; Z68.31 Body mass index [BMI] 31.0-31.9, adult
CPT/HCPCS: 36415; 71046; 71275; 80048; 80053; 80307; 80320; 81001; 83690; 83735; 83880; 84484; 85025; 85027; 85610; 85730; 86850; 86900; 86901; 86920; 93005; 93306; G0378; J3490; C8929; G0480; J1650; J3411; J3475; J7030; J7040; P9016; Q9967

== ENCOUNTER 2021-11-28 01:58 | Emergency (ER) | payer SELFPAY ==
--- NOTE | 2021-11-28 12:03 | Emergency Department Report ---
Chief Complaint: Chest Pain Stated Complaint: CHEST PAIN - HPI History of Present Illness: Patient comes in for chest pain yesterday. Worst with cough. Chill no fever , chest pain when she takes a deep breath or cough. Has hx/o DM, HTN. No nausea or vomiting. Followed by Shon Mayen. - Exam Vital Signs: Vital Signs 11/28/21 03:55 Temperature 98.5 F Pulse Rate 81 Respiratory 16 Rate Blood Pressure 103/66 [Right] O2 Sat by Pulse 100 Oximetry MSE screening note: Focused history and physical exam performed. Due to findings the following was ordered: Patient comes in for chest pain yesterday. Worst with cough. Chill no fever , chest pain when she takes a deep breath or cough. Has hx/o DM, HTN. No nausea or vomiting. Followed by Shon Mayen. ED Disposition for MSE Condition: Stable
--- NOTE | 2021-11-28 12:29 | XRay Report ---
CHEST 2 VIEWS INDICATION / CLINICAL INFORMATION: sob,cough and rales. COMPARISON: 10/09/2021 FINDINGS: SUPPORT DEVICES: None. HEART / MEDIASTINUM: No significant abnormality. LUNGS / PLEURA: No significant pulmonary or pleural abnormality. No pneumothorax. ADDITIONAL FINDINGS: No significant additional findings. IMPRESSION: 1. No acute findings. Signer Name: Nima Beard MD Signed: 11/28/2021 12:25 PM Workstation Name: [id number]
[2021-11-28 12:53] LABS: Basophils % (Auto) 0.2 % (0.0-1.8); Eosinophils # (Auto) 0.1 K/mm3 (0.0-0.4); Eosinophils % (Auto) 1.2 % (0.0-4.3); Hematocrit 21.7 % (30.3-42.9); Hemoglobin 7.1 gm/dl (10.1-14.3); Lymphocytes # (Auto) 1.2 K/mm3 (1.2-5.4); Lymphocytes % (Auto) 18.7 % (13.4-35.0); Mean Corpuscular HGB Conc 33 % (30-34); Mean Corpuscular Volume 94 fl (79-97); Monocytes # (Auto) 0.8 K/mm3 (0.0-0.8); Monocytes % (Auto) 12.7 % (0.0-7.3); Platelet Count 232 K/mm3 (140-440); Red Blood Count 2.32 M/mm3 (3.65-5.03); Red Cell Distribution Width 18.7 % (13.2-15.2)
[2021-11-28 13:10] LABS: Albumin 3.3 g/dL (3.9-5); Calcium 8.8 mg/dL (8.4-10.2)
--- NOTE | 2021-11-29 01:19 | Emergency Department Report ---
HPI - General Chief Complaint: Chest Pain PUI?: No Time Seen by Provider: 11/29/21 01:13 - HPI HPI: Of note: At the time of this provider's evaluation of the pt, the pt had been triaged and waiting to see a physician for 23 hours, 11 minutes. She is a 69-year-old female with diabetes hypertension, chronic anemia, presents for evaluation of chest pain. Patient states that she has pain in her chest her arms her legs and "all over" secondary to persistent coughing. She states she has not performed an at home COVID test. Cough is yellow and phlegm productive. She states she feels short of breath with the coughing denies any wheezing. She reports having 1 episode of vomiting after coughing but states this is completely resolved. No active nausea vomiting fevers or chills or body aches. She states she was seen by her primary care doctor 2 weeks ago and was given Tessalon Perles which she has been taking at night but states this is not helped her symptoms. She last smoked cigarettes approximately 1 year ago. No sick contacts, no travel history. Pain is currently 6 out of 10. ED Past Medical Hx - Past Medical History Previous Medical History?: Yes Hx Hypertension: Yes (noncompliant with medication times years) - Surgical History Additional Surgical History: lap - Social History Smoking Status: Current Every Day Smoker - Medications Home Medications: Home Medications Medication Instructions Recorded Confirmed Last Taken Type Ofloxacin 0.3% [Ocuflox 0.3% opth] 2 drops OP Q4HR 7 Days #1 bottle 12/30/19 Unknown Rx Nitrofurantoin Sanders/M-Cryst 100 mg PO Q12HR 7 Days #14 capsule 06/25/20 Unknown Rx [Macrobid CAP] Apixaban [Eliquis] 5 mg PO BID #60 tab 10/11/21 Unknown Rx Ferrous Sulfate [Iron 325 MG] 325 mg PO DAILY #30 tab 10/11/21 Unknown Rx Losartan [Cozaar] 50 mg PO QDAY #30 tablet 10/11/21 Unknown Rx Multivitamin Tab [Multiple Vitamin 1 each PO DAILY #30 tablet 10/11/21 Unknown Rx TAB (Theragran)] Terbinafine (Nf) [LamiSIL] 250 mg PO QDAY #10 tablet 10/11/21 Unknown Rx Thiamine [Vitamin B-1] 100 mg PO QDAY #30 tablet 10/11/21 Unknown Rx amLODIPine 5 mg PO QDAY #30 tablet 10/11/21 Unknown Rx hydroCHLOROthiazide [HCTZ] 25 mg PO QDAY #30 tablet 10/11/21 Unknown Rx ED Review of Systems ROS: Stated complaint: CHEST PAIN Other details as noted in HPI Comment: All other systems reviewed and negative Physical Exam - Physical Exam Vital Signs: Vital Signs 11/28/21 11/28/21 11/28/21 03:55 11:53 16:57 Temperature 98.5 F 98.4 F 98.6 F Pulse Rate 81 89 87 Respiratory 16 18 18 Rate Blood Pressure 119/59 144/57 Blood Pressure 103/66 [Right] O2 Sat by Pulse 100 100 100 Oximetry General: Gen: pt is well appearing, no acute distress HEENT: Normocephalic atraumatic pupils equally round and reactive to light extraocular muscles intact sclera anicteric Neck: Full range of motion, no midline spinal tenderness palpation, no JVD, no carotid bruits, no nuchal rigidity CVS: S1-S2 regular rate and rhythm with no gallops rubs or murmurs, chest wall nontender Pulmonary: Clear to auscultation bilaterally, no wheezes rales or rhonchi Abdomen: Soft nondistended nontender no guarding or rebound tenderness, no palpable deformities or step-offs, normal active bowel sounds, no hepatosplenomegaly, no pulsatile masses : Deferred Extremities: No cyanosis no clubbing no edema, intact distal peripheral pulses, Integumentary: Skin normal, no petechia no purpura no abscess no lacerations no evidence of trauma no evidence of infection Neuro: Patient is awake alert and oriented to person place time situation, mentating well, cranial nerves II through XII intact, no focal neurodeficits, sensation grossly tact Psych: Calm cooperative, mood affect normal ED Course Vital Signs 11/28/21 11/28/21 11/28/21 03:55 11:53 16:57 Temperature 98.5 F 98.4 F 98.6 F Pulse Rate 81 89 87 Respiratory 16 18 18 Rate Blood Pressure 119/59 144/57 Blood Pressure 103/66 [Right] O2 Sat by Pulse 100 100 100 Oximetry - Reevaluation(s) Reevaluation #1: 11/29/21 01:18 Patient observed to be comfortable and well-appearing. Ambulating in examina tion room, no drooling no stridor no respiratory distress, breathing unlabored, nontoxic-appearing ED Medical Decision Making - Lab Data Result diagrams: 11/28/21 12:28 11/28/21 12:28 - EKG Data -: EKG Interpreted by Me EKG shows normal: sinus rhythm Rate: normal - EKG Data When compared to previous EKG there are: no significant change Interpretation: no acute changes - Radiology Data Radiology results: report reviewed - Medical Decision Making 61-year-old female with multiple medical comorbidities presents for evaluation of yellow phlegm productive cough, chest pain, and pain to her entire body. Vital signs stable. Patient is extremely well-appearing on exam. EKG demonstrates no infarction, arrhythmia or dysrhythmia. Labs reviewed. Hemoglobin hematocrit are consistent with the patient's prior history of chronic anemia as demonstrated in her electronic health record, but she is asymptomatic at this time. Therefore per my clinical assessment there is no indication for the patient to undergo emergent transfusion. She was given analgesics here with good effect and resolution of her symptoms. Serial cardiac enzymes grossly unremarkable. She was reassessed multiple times and denies any active chest pain either at rest or with exertion, shortness of breath, difficulty breathing, or any other worrisome symptoms patient states she feels well and wants to go home. No further emergent work-up warranted at this time. Patient stable for discharge to home Pt advised to call her pcp within 1-2 business days to schedule an immediate outpatient follow-up appointment for reassessment and further management. Prior to discharge she was given strict verbal and written return precautions. Patient verbalized understanding and agreement the plan of care. Critical care attestation.: If time is entered above; I have spent that time in minutes in the direct care of this critically ill patient, excluding procedure time. ED Disposition Clinical Impression: Cough, Chest pain Disposition: HOME / SELF CARE / HOMELESS Is pt being admited?: No Does the pt Need Aspirin: No Condition: Stable Instructions: Nonspecific Chest Pain, Adult Referrals: JOSÉ VOSS MD [Primary Care Provider] - 3-5 Days
[2021-11-29] MEDS ORDERED: methylPREDNISolone Sod Succinate 125 MG/2 ML INJ IV ONE (01:39)
[2021-11-29 04:03] VITALS: BP 141/80
--- NOTE | 2021-11-29 13:21 | Electrocardiograph Report ---
[facility] Test Date: 2021-11-28 Test Time: 12:03:34 Pat Name: STILLWATER HURLEY Department: Room: Gender: F Therapy Aide: VERA : 1960 Requested By: KYLE MO Order Number: [id number] Reading MD: Arely Richardson Measurements Intervals [place] Rate: 79 P: 78 NE: 139 QRS: 58 QRSD: 86 T: 39 QT: 402 QTc: 462 Interpretive Statements Sinus rhythm Poor R wave progression Compared to ECG 10/11/2021 07:17:45 No significant change Electronically Signed On 11-29-2021 13:20:52 EDT by Arely Richardson
== END 2021-11-29 05:56 | disposition home or self-care (01) ==
LOC: ED 01:58
DX: R07.9 Chest pain, unspecified (principal); R05.9 Cough, unspecified; I10 Essential (primary) hypertension; F17.200 Nicotine dependence, unspecified, uncomplicated
CPT/HCPCS: 36415; 71046; 80053; 83880; 84484; 85025; 93005; 96374; 99284; J2930